=== PATIENT | female | born 1960 | race Caucasian/White ===

== ENCOUNTER 2017-10-21 08:22 | Day surgery (SDC) | payer BC ==
--- NOTE | 2017-10-13 21:37 | HP ---
PREOPERATIVE HISTORY AND PHYSICAL: DATE OF ADMISSION/SURGERY: 10/21/17 [facility] DATE OF OFFICE VISIT/ENCOUNTER: 10/13/17 ATTENDING SURGEON: Patricia Graham MD * (DICTATED BY CARMEN BARRIOS) PROCEDURE: Excision mass, right long finger. CHIEF COMPLAINT: Mass, right long finger. HISTORY OF PRESENT ILLNESS: This is a 57-year-old female, who has had a mass on the distal aspect of her right middle finger just adjacent to the finger nail that has been present for over [address] Yo not too long ago, who tried to freeze it off with liquid nitrogen, but the cyst returned. She reports that it is not overly bothersome unless she bumps her finger against something, which seems to happen with some regularity, often times the cyst ruptures and the cyst will drain clear fluid. She reports that the finger gets very inflamed at times. She denies any numbness or tingling or any injury to the finger. She would like to have the mass surgically removed. PAST MEDICAL HISTORY: 1. Hypertension. 2. History of cancer, skin lesion on her abdomen. 3. History of small bowel obstruction. PAST SURGICAL HISTORY: 1. Bariatric surgery in 2011. 2. Excision of skin cancerous lesion from abdomen. 3. x2. 4. Surgery for small bowel obstruction approximately 2 years ago. MEDICATIONS: 1. Atenolol 50 mg one-half tab daily. 2. Calcium 500 mg 2 a day. 3. 325 mg 1 daily. 4. Losartan potassium/hydrochlorothiazide 10 mg daily. 5. Multivitamin daily. 6. Vitamin B6 once a week. 7. Vitamin B complex 1 daily. 8. Vitamin B12 one daily. 9. Vitamin D 2000 units daily. ALLERGIES: AUGMENTIN causes hives. FAMILY HISTORY: Congestive heart failure, AFib, hypertension, diabetes, and rheumatoid arthritis. 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 She is a former smoker. She quit approximately 35 years ago. Prior to that, she smoked a pack per day for 15 years. She denies recreational drug use. She drinks alcohol on occasion. REVIEW OF SYSTEMS: General: Negative for fevers, chills, night sweats, unexplained weight loss/gain. No known anesthesia problems. HEENT: Negative for headache, lightheadedness, syncopal episodes, visual changes. Integumentary : Negative for abrasions, lesions, open wounds. Cardiothoracic: Negative for hypertension, chest pain, palpitations, edema. Respiratory: Negative for shortness of breath with exertion, chronic cough, wheezing. GI: Positive for diarrhea. Negative for nausea, vomiting, constipation, GERD. : Negative for nocturia, urinary frequency, urgency, history of UTIs. Musculoskeletal: Positive for current complaint. Negative for chronic or intermittent back pain. Neurological: Negative for paresthesias, numbness, history of seizure, stroke, poor balance. Endocrine: Negative for diabetes and thyroid issues. Hematologic: Negative for easy bruising, anemia, bleeding disorders, history of DVT. Infectious Disease: Negative for history of MRSA, hepatitis C, HIV. PHYSICAL EXAMINATION GENERAL: Well-developed, well-nourished, 57-year-old female, in no acute distress. VITAL SIGNS: Height 5 feet 6 inches, weight 268 pounds, blood pressure 128/84, pulse rate 60. HEENT: Normocephalic, atraumatic. Pupils are equal, round, and reactive to light and accommodation. Extraocular movements are intact. NECK: Supple. No palpable lymph nodes. Throat is clear. PULMONARY: Lungs are clear to auscultation bilaterally. No wheezes, rales, or rhonchi. CARDIOVASCULAR: Regular rate and rhythm. S1, S2. No murmurs, rubs, or gallops. No edema. ABDOMEN: Positive bowel sounds, soft, nontender. MUSCULOSKELETAL: On exam of her right middle finger, there is a cystic mass adjacent to the fingernail. There is no obvious deformity at the DIP joint, but there is deformity to the fingernail. She has active flexion and extension of the DIP joint and can make a good fist. Neurovascular function is intact. There is no current drainage, but the cyst is tender to palpation. NEUROLOGICAL: Alert and oriented x3. Cranial nerves II through XII are intact. Sensation is intact to light touch. IMAGING STUDIES: X-rays, AP, lateral, and oblique of the right middle finger shows soft tissue mass and minimal degenerative changes of the DIP joint. IMPRESSION: Mucous cyst, right middle finger. PLAN: The patient is schedule to undergo an excision mass right long finger with Dr. Graham on 10/21/17. She will return to the office 10 days postop for followup and suture removal. A prescription for Ultracet was e-scribed to the patient's pharmacy for postoperative pain management. CARMEN BARRIOS [id number]/[facility] #: [id number] MTDD
[~2017-10-21 08:22] MED LIST: Buffered Lidocaine 0.9% SYRIN* 5 ML/SYR SYRINGE INTRADERM ONE; Famotidine IV* 10 MG/ML 2 ML (20 mg) IV ONE; Famotidine IV* 10 MG/ML 2 ML (20 mg) ONE
[2017-10-21] MEDS ORDERED: Midazolam* 1 MG/ML 5 ML VIAL (5 MG) ONE (09:27)
[2017-10-21] MEDS ORDERED: fentaNYL* 50 MCG/ML 2 ML VIAL (100 MCG VIAL) ONE (09:27)
[2017-10-21] MEDS ORDERED: Lidocaine 1% INJ* 10 MG/ML 30 ML SDV ONE (09:41)
[2017-10-21] MEDS ORDERED: Ondansetron INJ* 2 MG/ML VIAL IV PRN (09:42)
[2017-10-21] MEDS ORDERED: Ketorolac INJ* 30 MG/ML 1 ML VIAL IV PRN (09:42)
[2017-10-21] MEDS ORDERED: fentaNYL* 50 MCG/ML 2 ML VIAL (100 MCG VIAL) IV PRN (09:42)
[2017-10-21] MEDS ORDERED: Naloxone* 0.4 MG/ML 1 ML VIAL IV PRN (09:42)
[2017-10-21] MEDS ORDERED: HYDROcodone/ACETAMIN 5-325 MG* 1 TAB PO PRN (09:42)
[2017-10-21] MEDS ORDERED: Lidocaine 2% MPF* 2 ML VIAL ONE (09:45)
[2017-10-21] MEDS ORDERED: Propofol* 10 MG/ML 20 ML BTL IV PUSH ONE (09:45)
[2017-10-21 10:31] VITALS: BP 112/67
--- NOTE | 2017-10-21 15:08 | OP ---
CC: Patricia Graham MD OPERATIVE REPORT: DATE OF OPERATION: 10/21/17 DATE OF : 56 SURGEON: Patricia Graham MD TAVERN KEEPER: CARMEN Gann. ANESTHESIA: Local MAC. PRE-OP DIAGNOSIS: Right long finger mass. POST-OP DIAGNOSIS: Right long finger mass. OPERATIVE PROCEDURE: Right long finger mass excision. ESTIMATED BLOOD LOSS: Zero. TOURNIQUET TIME: Approximately 10 minutes. INDICATIONS FOR PROCEDURE: Jessica is a 57-year-old woman who has a painful mass on the distal aspec t of her right long finger adjacent to the fingernail. When she hits it on something, it will often open up and become very erythematous. Clinically, it appears to be a ganglion cyst. She presents for removal of a mass in the right long finger. DESCRIPTION OF PROCEDURE: The patient was brought to the operating room, was given a sedation anesth etic and a digital block with 10 cc of 1% plain lidocaine applied to the right long finger. The skin of her right hand and forearm was prepped and draped in the usual sterile fashion. The hand and for earm were exsanguinated and the tourniquet elevated to 250 mmHg. An H-shaped incision was made over the dorsal aspect of the DIP joint and the skin flaps were dissected up over the extensor tendon and the ganglion cyst. The cyst was removed and traced with its back to the DIP joint. The cyst was sent for pathology. Either side of the extensor tendon was incised and the underlying osteophyte s removed with a rongeur. The wound was irrigated and the skin edges reapproximated with 4-0 nylon s uture. The wound was dressed with Xeroform, 4x4, Webril, and Coban. The patient tolerated the proce dure well and was brought to the recovery room in good condition. [id number]/[facility] #: [id number]
--- NOTE | 2017-10-22 08:55 | OP ---
CC: Dr. Graham ADDENDUM/CORRECTION: OPERATIVE NOTE: DESCRIPTION OF PROCEDURE: "The blank in the body of the note should read stalk. " [id number]/[facility] #: [id number] [place]ERT
== END 2017-10-21 13:30 | disposition home or self-care (01) ==
LOC: OREAST 08:22
PROVIDERS: ATTEND Orthopaedic Surgery
DX: M67.441 Ganglion, right hand (principal); I10 Essential (primary) hypertension; Z85.828 Personal history of other malignant neoplasm of skin; Z87.19 Personal history of other diseases of the digestive system; Z88.8 Allergy status to other drugs, medicaments and biological substances; Z87.891 Personal history of nicotine dependence
CPT/HCPCS: 88305; J2250; J2704; J3010

== ENCOUNTER → 2017-12-20 09:37 | Day surgery (SDC) | payer BC ==
[~2017-12-20 09:37] MED LIST changes: -Famotidine IV* 10 MG/ML 2 ML (20 mg) IV ONE; +Lidocaine 1% INJ* 10 MG/ML 30 ML SDV ONE; +Lidocaine 2% PF * 5 ML VIAL ONE; +Midazolam* 1 MG/ML 2 ML VIAL (2 MG) ONE; +Propofol* 10 MG/ML 20 ML BTL IV PUSH ONE; +diPHENhydraMINE IV* 50 MG/ML 1 ml VIAL (BENADRYL) ONE; +fentaNYL* 50 MCG/ML 2 ML VIAL (100 MCG VIAL) ONE
[2017-12-20 14:01] VITALS: BP 158/82
--- NOTE | 2017-12-20 22:15 | OP ---
CC: Dr. Graham* OPERATIVE REPORT: DATE OF OPERATION: 12/20/17 - LOI DATE OF : 56 SURGEON: Patricia Graham MD ENDOCRINOLOGY PHYSICIAN: CARMEN Gann ANESTHESIOLOGIST: Gab Slaughter MD ANESTHESIA: Local MAC. PRE-OP DIAGNOSIS: Right middle finger ganglion cyst excision with wound infection. POST-OP DIAGNOSIS: Right middle finger ganglion cyst excision with wound infection. OPERATIVE PROCEDURE: Incision and drainage right middle finger. INDICATIONS: Jessica is a 57-year-old woman who had a mucous cyst removed from the DIP joint of her right middle finger. She has persistent pain and swelling. She has not improved significantly with oral antibiotics. She presents for I and D of the right middle finger. ESTIMATED BLOOD LOSS: Zero. TOURNIQUET TIME: About 15 minutes. DESCRIPTION OF PROCEDURE: The patient was brought to operating room, was given a sedation anesthetic and a digital block anesthetic with 10 cc of 1% plain lidocaine. The skin of her right hand and forearm was prepped and draped in the usual sterile fashion. The finger was exsanguinated with a Tourni-Cot. The previous scar was incised and the flaps were dissected up over the extensor tendon. Cultures were obtained. There was also an area where the skin of the eponychium was caught up in the healing fingernail. This was carefully debrided away from the fingernail. The wound was then copiously irrigated with saline. The incision was closed with a single 4-0 nylon suture and some Xeroform was tucked under the eponychial fold to try to allow the fingernail to grow out way from it. The wound was dressed with Xeroform, 4x4, Webril and Coban. The patient tolerated the procedure well and was brought to the recovery room in good condition. [id number]/[facility] #: [id number] [facility]
== END | disposition home or self-care (01) ==
LOC: OREAST 09:37
PROVIDERS: ATTEND Orthopaedic Surgery
DX: T81.4XXA Infection following a procedure, initial encounter (principal); Z87.891 Personal history of nicotine dependence; I10 Essential (primary) hypertension; Z68.41 Body mass index [BMI] 40.0-44.9, adult; G47.33 Obstructive sleep apnea (adult) (pediatric)
CPT/HCPCS: 87070; 87073; 87205; J1200; J2250; J2704; J3010

== ENCOUNTER 2018-10-31 08:37 | Day surgery (SDC) | payer BC ==
--- NOTE | 2018-10-27 07:33 | HP ---
HISTORY AND PHYSICAL: DATE OF SURGERY: 10/31/18 DATE OF OFFICE VISIT: 10/26/18 SURGEON: Patricia Graham MD * (DICTATED BY CARMEN VARGHESE) PROCEDURE: Left middle finger ganglion cyst excision. CHIEF COMPLAINT: Left middle finger pain. HISTORY OF PRESENT ILLNESS: Ms. Elliott is a 58-year-old female with a ganglion cyst on her left middle finger and she is elected to have it removed secondary to pain. PAST MEDICAL HISTORY: Hypertension and sleep apnea. PAST SURGICAL HISTORY: 1. x2. 2. Ganglion cyst removal from the left wrist. 3. Ganglion cyst removal from her buttock. 4. Ganglion cyst removal from her right hand. CURRENT MEDICATIONS: 1. Atenolol 25 mg a day. 2. Metoprolol unknown dose daily. 3. Vitamin D. 4. Iron. 5. Vitamin C. 6. Vitamin B6. 7. Vitamin B12. 8. Calcium. ALLERGIES: AUGMENTIN causing hives. FAMILY HISTORY: Coronary artery disease, diabetes and RA. SOCIAL HISTORY: She is a 58-year-old female. She lives with her . She does not smoke or use drugs. REVIEW OF SYSTEMS: A complete 14-point review of systems was reviewed with the patient. It is all negative and noncontributory. She denies the history of DVT , PE, hepatitis, HIV or anesthesia problems. PHYSICAL EXAMINATION GENERAL: She is well developed, well nourished, in no acute distress. VITAL SIGNS: She stands 66 inches tall and weighs 271 pounds. Her blood pressure is 138/80, her heart rate is 76. HEENT: Normocephalic, atraumatic. NECK: Supple. No palpable lymph nodes. PULMONARY: The lungs are clear to auscultation bilaterally. CARDIAC: Regular rate and rhythm. Strong S1 and S2. ABDOMEN: The abdomen is soft, nontender, and nondistended. NEUROLOGICAL: She is alert and oriented x3. MUSCULOSKELETAL: Left upper extremity: The skin is intact. There is no open wounds or abrasions. There is a palpable ganglion cyst involving the distal left middle finger, which is mildly tender to palpation. She has a 2+ distal pulse. Intact sensation. Good capillary refill. ASSESSMENT AND PLAN: Ms. Elliott is a 58-year-old female with a ganglion cyst involving the left middle finger. She is elected to have this removed and is scheduled for a left middle finer ganglion cyst excision on 10/31/[address] Graham discussed the risks and benefits of the surgery at today' s visit and all of her questions were answered. She will follow up with Dr. Graham in 7 to 10 days after the surgery. CARMEN VARGHESE [id number]/[facility] #: [id number] [place]
[~2018-10-31 08:37] MED LIST changes: -Buffered Lidocaine 0.9% SYRIN* 5 ML/SYR SYRINGE INTRADERM ONE; +Buffered Lidocaine 1% SYRIN* 1 ML/SYRINGE INTRADERM ONE; -Famotidine IV* 10 MG/ML 2 ML (20 mg) ONE; +Lactated Ringers 1000 ML Bag* 1,000 ML IV SCH; -Lidocaine 2% PF * 5 ML VIAL ONE; -Midazolam* 1 MG/ML 2 ML VIAL (2 MG) ONE; -Propofol* 10 MG/ML 20 ML BTL IV PUSH ONE; -diPHENhydraMINE IV* 50 MG/ML 1 ml VIAL (BENADRYL) ONE; -fentaNYL* 50 MCG/ML 2 ML VIAL (100 MCG VIAL) ONE
[2018-10-31 10:35] VITALS: BP 160/82
--- NOTE | 2018-10-31 11:06 | OP ---
CC: Dr. Graham OPERATIVE PROCEDURE: DATE OF OPERATION: 10/31/18 DATE OF : 56 SURGEON: Patricia Graham MD [employer] LEASING CONSULTANT: CARMEN Gann ANESTHESIA: Local. PRE-OP DIAGNOSIS: Left middle finger mass. POST-OP DIAGNOSIS: Left middle finger mass. OPERATIVE PROCEDURE: Remove mass of left middle finger. ESTIMATED BLOOD LOSS: Zero. TOURNIQUET TIME: About 15 minutes. INDICATION FOR PROCEDURE: Jessica is a 58-year-old woman who has a painful mass on the dorsal aspect of her left middle finger DIP joint. She presents for removal. DESCRIPTION OF PROCEDURE: The patient was brought to the operating room, was given a digital block w ith 10 cc of 1% plain lidocaine. The skin of her left hand and forearm was prepped and draped in the usual sterile fashion. A Tourni-Cot was placed on the finger and then a T-shaped incision was made centered over the mass on the dorsal aspect of the DIP joint. The skin flaps were carefully dissecte d over the mass and the mass was removed in its entirety and sent for pathology. The ulnar side of t he DIP joint was incised longitudinally and the underlying osteophyte was removed with a rongeur. Th e wound was irrigated and the skin edges reapproximated with 4-0 nylon suture. The wound was dressed with Xeroform, 4x4, Webril, and Coban. The patient tolerated the procedure well and was brought to the recovery room in good condition. [id number]/[facility] #: [id number]
== END 2018-10-31 10:52 | disposition home or self-care (01) ==
LOC: OREAST 08:37
PROVIDERS: ATTEND Orthopaedic Surgery
DX: L72.0 Epidermal cyst (principal); I10 Essential (primary) hypertension
CPT/HCPCS: 88304

== ENCOUNTER 2021-07-20 08:25 | Inpatient (IN) ==
[2021-07-20] MEDS ORDERED: Lactated Ringers 1000 ml BAG 1,000 ML IV ONE (08:40)
[2021-07-20] MEDS ORDERED: Magnesium Sulfate IV 1GM/100ML 1 GM/100 ML BAG IV ONE (08:40)
[2021-07-20] MEDS ORDERED: Diltiazem IV push/loading dose 5 MG/ML 5 ML vial (25 mg) IV SLOW PU ONE (08:40)
[2021-07-20 09:02] LABS: ABS Eosinophils 0.2 10^3/ul (0-0.6); ABS Lymphocytes 0.7 10^3/ul (1.0-4.8); ABS Monocytes 0.3 10^3/ul (0-0.8); ABS Neutrophils 4.7 10^3/ul (1.5-7.7); Eosinophil % 2.8 %; Hematocrit 37 % (35-47); Hemoglobin 12.6 g/dL (12.0-16.0); Lymphocyte % 12.5 %; Mean Corpuscular HGB Conc 34 g/dL (31-36); Mean Corpuscular Hemoglobin 29 pg (27-31); Mean Corpuscular Volume 85 fL (80-97); Mean Platelet Volume 9.2 fL (7.4-10.4); Platelet Count 198 10^3/uL (150-450); Red Blood Count 4.39 10^6 /uL (3.70-4.87); Red Cell Distribution Width 15 % (10-15)
[2021-07-20 09:11] LABS: INR 1.14 (0.86-1.15)
[2021-07-20 09:41] LABS: Albumin 3.7 g/dL (3.2-5.2); Albumin/Globulin Ratio 1.8 (1-3); Calcium 8.6 mg/dL (8.6-10.3); Globulin 2.1 g/dL (2-4); Magnesium 1.8 mg/dL (1.9-2.7); Potassium 3.5 mmol/L (3.5-5.0); Total Bilirubin 0.8 mg/dL (0.2-1.0); Total Protein 5.8 g/dL (6.4-8.9); eGFR CKD-EPI 80.8 (>60)
[2021-07-20] MEDS ORDERED: Diltiazem IV BAG D5W Premix 125 MG/125 ML BAG IV SCH ×3 (10:00→16:00)
[2021-07-20 10:47] LABS: High Sensitivity Troponin 1 Hr 10 pg/mL (<15)
[2021-07-20] MEDS ORDERED: Potassium Chlor 20 meq TAB.ER PO ONE (12:26)
[2021-07-20] MEDS ORDERED: Iohexol 350 (CONTRAST) 500 ML MDV IV ONE (12:44)
[2021-07-20 12:59] LABS: TSH Ultra Thyroid Stim Horm 2.44 mcIU/mL (0.34-5.60)
[2021-07-20] MEDS: Diltiazem (ADVAN VIAL) 100 MG/100 ML ADDV.BAG IV SCH ×2 (16:21→17:52)
[2021-07-21 06:03] LABS: ABS Eosinophils 0.2 10^3/ul (0-0.6); ABS Lymphocytes 1.4 10^3/ul (1.0-4.8); ABS Monocytes 0.4 10^3/ul (0-0.8); ABS Neutrophils 3.7 10^3/ul (1.5-7.7); Eosinophil % 3.7 %; Hematocrit 35 % (35-47); Hemoglobin 11.8 g/dL (12.0-16.0); Lymphocyte % 23.8 %; Mean Corpuscular HGB Conc 34 g/dL (31-36); Mean Corpuscular Hemoglobin 28 pg (27-31); Mean Corpuscular Volume 84 fL (80-97); Mean Platelet Volume 9.1 fL (7.4-10.4); Platelet Count 187 10^3/uL (150-450); Red Blood Count 4.16 10^6 /uL (3.70-4.87); Red Cell Distribution Width 14 % (10-15); White Blood Count 5.7 10^3/uL (3.5-10.8)
[2021-07-21 06:56] LABS: C Reactive Protein 15.13 mg/L (<8.01); HDL Cholesterol 51.2 mg/dL
[2021-07-21 12:57] VITALS: BP 131/70
== END 2021-07-21 12:54 | disposition home or self-care (01) | DRG 201 ==
LOC: ED 08:25 → SUATTDRO 11:56 → EDHOLD 11:56 → MEDTELE 13:28
PROVIDERS: ADMIT Pediatrics; ATTEND Internal Medicine